=== PATIENT | male | born 1980 | race Caucasian/White ===

== ENCOUNTER 2025-06-18 09:13 | Emergency (ER) | payer BC, OTHER ==
[2025-06-18] MEDS ORDERED: KETOROLAC 30 MG/ML INJ ONE (09:46)
[2025-06-18] MEDS ORDERED: HYDROMORPHONE HCL 1 MG/ML INJ ONE (09:46)
[2025-06-18] MEDS ORDERED: CYCLOBENZAPRINE 10 MG TAB ONE (09:46)
--- NOTE | 2025-06-18 10:28 | EDPHYS ---
Physician Documentation [facility] Name: Caio Terrazas II Age: 44 yrs Sex: Male : 1980 Arrival Date: 06/18/2025 Time: 09:13 Bed 13 Private MD: ED Physician Kanwal Benavides HPI: 06/18 09:45 This 44 yrs old Male presents to ER via Ambulatory with complaints of Neck Pain, sp3 Shoulder Pain, Arm Pain. 09:45 44-year-old male with no past medical history who is visiting here from [facility] now sp3 presents to the ED with a chief complaint left-sided neck pain extending into the posterior shoulder and anterior shoulder/deltoid muscle area. Patient denies any injury and states he just woke up with this pain a few days ago. He has some numbness and tingling on that left side as well. He denies any chest pain, shortness of breath, dyspnea on exertion, abdominal pain, trauma, fever, or any other signs or symptoms on ROS at this time.. Historical: - Allergies: 09:25 No Known Allergies; iw - Home Meds: 09:25 None [Active]; iw - PMHx: 09:25 None; iw - PSHx: 09:25 right leg; right knee; Tonsillectomy; right rotator cuff; iw - Immunization history:: Adult Immunizations up to date. - Infectious Disease History:: Denies. - Social history:: Smoking status: Patient denies any tobacco usage or history of. ROS: 09:46 Constitutional: Negative for fever, chills, and weight loss, Eyes: Negative for injury, sp3 pain, redness, and discharge, ENT: Negative for injury, pain, and discharge, Cardiovascular: Negative for chest pain, palpitations, and edema, Respiratory: Negative for shortness of breath, cough, wheezing, and pleuritic chest pain, Abdomen/GI: Negative for abdominal pain, nausea, vomiting, diarrhea, and constipation, MS/Extremity: Negative for injury and deformity, Skin: Negative for injury, rash, and discoloration, Neuro: Negative for headache, weakness, numbness, tingling, and seizure, Psych: Negative for depression, anxiety, suicide ideation, homicidal ideation, and hallucinations, Allergy/Immunology: Negative for hives, rash, and allergies, Endocrine: Negative for neck swelling, polydipsia, polyuria, polyphagia, and marked weight changes, Hematologic/Lymphatic: Negative for swollen nodes, abnormal bleeding, and unusual bruising, 09:46 All other systems are negative, Exam: 09:47 Constitutional: This is a well developed, well nourished patient who is awake, alert, sp3 and in no acute distress. Head/Face: Normocephalic, atraumatic. Eyes: Pupils equal round and reactive to light, extra-ocular motions intact. Lids and lashes normal. Conjunctiva and sclera are non-icteric and not injected. Cornea within normal limits. Periorbital areas with no swelling, redness, or edema. ENT: Nares patent. No nasal discharge, no septal abnormalities noted. External auditory canals are clear. Oropharynx with no redness, swelling, or masses, exudates, or evidence of obstruction, uvula midline. Mucous membranes moist. Chest/axilla: Normal chest wall appearance and motion. Nontender with no deformity. No lesions are appreciated. Cardiovascular: Regular rate and rhythm with a normal S1 and S2. No gallops, murmurs, or rubs. Normal PMI, no JVD. No pulse deficits. Respiratory: Lungs have equal breath sounds bilaterally, clear to auscultation and percussion. No rales, rhonchi or wheezes noted. No increased work of breathing, no retractions or nasal flaring. Abdomen/GI: Soft, non-tender, with normal bowel sounds. No distension or tympany. No guarding or rebound. No evidence of tenderness throughout. Skin: Warm, dry with normal turgor. Normal color with no rashes, no lesions, and no evidence of cellulitis. MS/ Extremity: Pulses equal, no cyanosis. Neurovascular intact. Full, normal range of motion. Neuro: Awake and alert, GCS 15, oriented to person, place, time, and situation. Cranial nerves II-XII grossly intact. Motor strength 5/5 in all extremities. Sensory grossly intact. Cerebellar exam normal. Normal gait. 09:47 Neck: Mild pain to palpation along the left-sided neck musculature and posterior shoulder, deltoid area. Neurologically normal. No deficits. Chest exam, heart exam and lung exams are normal., Vital Signs: 09:25 BP 154 / 89; Pulse 84; Resp 18; Pulse Ox 99% on R/A; Weight 120.66 kg; Height 5 ft. 8 iw in. ; Pain 8/10; 11:00 BP 129 / 69; Pulse 77; Resp 16; Pulse Ox 99% on R/A; os 09:25 Body Mass Index 40.44 (120.66 kg, 172.72 cm) iw 09:25 Pain Scale: Adult iw MDM: 09:27 Medical Screening Exam initiated sp3 09:47 Data reviewed: vital signs, nurses notes, radiologic studies. ED course: 44-year-old sp3 male with neck and back pain. Differential diagnosis includes muscle strain, cervical radiculopathy, among others. Clinically I am not highly suspicious of acute coronary syndrome, aortic pathology including dissection or aneurysm, pulmonary pathology, biliary pathology or any other critical process. Patient is in no acute distress resting comfortably. Patient states he just wants a medicine to "get him back to [place]". I have advised he will likely need an MRI of the C-spine. Will start with cervical x-rays and administer ketorolac, Dilaudid both IM as well as Flexeril p.o. He will be discharged on Flexeril and diclofenac.. 10:26 ED course: C5-C6 degenerative changes noted. Patient feeling better. We will discharge sp3 home as per plan.. 06/18 09:43 Order name: C Spine Ap/Lat XRAY sp3 Administered Medications: 09:56 Drug: Ketorolac IM 60 mg IM once Route: IM; Site: right ventrogluteal; os 10:29 Follow up: Response: No adverse reaction; Pain is decreased os 09:56 Drug: HYDROmorphone IM 1 mg IM once Route: IM; Site: right vastus lateralis; os 10:29 Follow up: Response: No adverse reaction; Pain is decreased os 09:56 Drug: Cyclobenzaprine PO 10 mg PO once Route: PO; os 10:29 Follow up: Response: No adverse reaction; Pain is decreased os Disposition Summary: 06/18/25 10:27 Discharge Ordered Notes: Location: Home sp3 Condition: Stable sp3 Diagnosis - Back pain, cervical radiculopathy sp3 Followup: sp3 - With: Private Physician - When: Upon discharge from the Emergency Department - Reason: Continuance of care Discharge Instructions: - Discharge Summary Sheet sp3 - Cervical Radiculopathy sp3 Forms: - Medication Reconciliation Form sp3 - Antibiotic Education sp3 - Prescription Opioid Use sp3 - Patient Portal Instructions sp3 - Leadership Thank You Letter sp3 Prescriptions: - Diclofenac Sodium 75 mg Oral Tablet Sustained Release - take 1 tablet ORAL route 2 times per day; 30 tablet; Refills: 0, Product sp3 Selection Permitted - Cyclobenzaprine 5 mg Oral Tablet - take 1 tablet ORAL route 3 times per day As needed; 15 tablet; Refills: 0, sp3 Product Selection Permitted Signatures: Dispatcher [employer] Siobhan Goins, RN RN iw Kanwal Benavides MD MD sp3 Christy Rollins RN RN os
--- NOTE | 2025-06-18 10:28 | ER ---
Nurse's Notes [facility] Name: Caio Terrazas II Age: 44 yrs Sex: Male : 1980 Arrival Date: 06/18/2025 Time: 09:13 Bed 13 Private MD: Diagnosis: Back pain, cervical radiculopathy Presentation: 06/18 09:23 Chief complaint: Patient states: pain to left upper spine down left shoulder and left iw arm, started 2 weeks ago, [facility] and they gave him a Toradol shot and steroid shot , got a massage, felt better , then woke up today with increased pain. Coronavirus screen: At this time, the client does not indicate any symptoms associated with coronavirus-19. Ebola Screen: No symptoms or risks identified at this time. 09:23 Method Of Arrival: Ambulatory iw 09:23 Acuity: ALEIDA 3 iw 09:24 Initial Sepsis Screen: Does the patient meet any 2 criteria? Does the patient have a iw suspected source of infection? No. Patient's initial sepsis screen is negative. Risk Assessment: Do you want to hurt yourself or someone else? Patient reports no desire to harm self or others. 09:24 Onset of symptoms was June 04, 2025. iw Triage Assessment: 10:15 Pain: Complains of pain in left trapezius. os 10:57 General: Appears in no apparent distress. comfortable, well groomed, Behavior is calm, os cooperative, appropriate for age. Pain:. Historical: - Allergies: 09:25 No Known Allergies; iw - Home Meds: 09:25 None [Active]; iw - PMHx: 09:25 None; iw - PSHx: 09:25 right leg; right knee; Tonsillectomy; right rotator cuff; iw - Immunization history:: Adult Immunizations up to date. - Infectious Disease History:: Denies. - Social history:: Smoking status: Patient denies any tobacco usage or history of. Screenin:[facility] ED Fall Risk Assessment (Adult) History of falling in the last 3 months, os including since admission No falls in past 3 months (0 pts) Confusion or Disorientation No (0 pts) Intoxicated or Sedated No (0 pts) Impaired Gait No (0 pts) Mobility Assist Device Used No (0 pt) Altered Elimination No (0 pt) Score/Fall Risk Level 0 - 2 = Low Risk Oriented to surroundings, Maintained a safe environment. Abuse screen: Denies threats or abuse. Nutritional screening: No deficits noted. Tuberculosis screening: No symptoms or risk factors identified. Vital Signs: 09:25 BP 154 / 89; Pulse 84; Resp 18; Pulse Ox 99% on R/A; Weight 120.66 kg; Height 5 ft. 8 iw in. ; Pain 8/10; 11:00 BP 129 / 69; Pulse 77; Resp 16; Pulse Ox 99% on R/A; os 09:25 Body Mass Index 40.44 (120.66 kg, 172.72 cm) iw 09:25 Pain Scale: Adult iw ED Course: 09:17 Patient arrived in ED. cj3 09:17 Kanwal Benavides MD is Attending Physician. sp3 09:24 Triage completed. iw 09:27 Arm band placed on. iw 10:40 C Spine Ap/Lat XRAY In Process Unspecified. EDMS 10:58 No provider procedures requiring assistance completed. Patient did not have IV access os during this emergency room visit. 11:00 Patient has correct armband on for positive identification. Bed in low position. Side os rails up X2. Provided Education on: . Administered Medications: 09:56 Drug: Ketorolac IM 60 mg IM once Route: IM; Site: right ventrogluteal; os 10:29 Follow up: Response: No adverse reaction; Pain is decreased os 09:56 Drug: HYDROmorphone IM 1 mg IM once Route: IM; Site: right vastus lateralis; os 10:29 Follow up: Response: No adverse reaction; Pain is decreased os 09:56 Drug: Cyclobenzaprine PO 10 mg PO once Route: PO; os 10:29 Follow up: Response: No adverse reaction; Pain is decreased os Medication: 11:00 VIS not applicable for this client. os Outcome: 10:27 Discharge ordered by . sp3 10:58 Discharged to home ambulatory, os 10:58 Condition: improved 10:58 Discharge instructions given to patient, family, Instructed on discharge instructions, follow up and referral plans. medication usage, Demonstrated understanding of instructions, follow-up care, medications, Prescriptions given X 2, 11:01 Patient left the ED. os Signatures: Dispatcher [employer] EDMS Siobhan Neal RN RN Kanwal Chapin MD MD sp3 Christy Rollins, RN RN Izabel Carrera cj3
--- NOTE | 2025-06-18 11:05 | RAD REPORT ---
Exam:C Spine Ap/Lat CLINICAL INDICATION: Neck pain Findings: No fracture or dislocation seen. Loss of the normal lordosis of the cervical spine may be secondary to muscle spasm. Mild spondylosis C5-6 and C6-7 consisting mainly of osteophytes. Mild anterior subluxation C3 on C4 and C4 on C5. No prevertebral swelling.
[2025-06-18 11:30] VITALS: BP 129/69; O2SAT 99
== END 2025-06-18 11:01 | disposition home or self-care (01) ==
LOC: ER 09:13
DX: M54.12 Radiculopathy, cervical region (principal)
CPT/HCPCS: 72040; 96372; 99284; J1171; J1885